=== PATIENT | female | born 1985 | race Caucasian/White ===

== ENCOUNTER → 2020-07-23 | Outpatient (CLI) | payer OTHER ==
--- NOTE | 2020-07-23 12:19 | US ---
EXAMINATION TYPE: US thyroid st tissue head/neck DATE OF EXAM: 07/23/2020 COMPARISON: NONE CLINICAL HISTORY: E07.9 Disorder of Thyroid, R13.13 Dysphagia. Dysphagia GLAND SIZE: Right Lobe: 5.2 x 1.2 x 1.4 cm Overall Parenchyma: homogenous Left Lobe: 4.1 x 1.2 x 1.3 cm Overall Parenchyma: homogeneous Isthmus Thickness: .5 cm NODULES RIGHT: # of nodules measured on right: 0 LEFT: # of nodules measured on left: 0 ISTHMUS: # of nodules measured in the isthmus: 0 Bilateral neck scanned, no evidence of lymphadenopathy. IMPRESSION: No thyroid cyst or nodule is seen on the sonographic study.
== END | disposition home or self-care (01) ==
LOC: RADUSWWP 07:28
PROVIDERS: ATTEND Family Medicine
DX: E07.9 Disorder of thyroid, unspecified (principal); R13.10 Dysphagia, unspecified
CPT/HCPCS: 76536

== ENCOUNTER 2020-11-01 11:45 | Emergency (ER) | payer BC, OTHER ==
[2020-11-01 11:55] VITALS: BP 148/95; PULSE 56; RESP 18; TEMP 98
--- NOTE | 2020-11-01 12:14 | ED ---
General Adult HPI - General Chief complaint: Neuro Symptoms/Deficit Stated complaint: loss of vision Time Seen by Provider: 11/01/20 11:58 Source: patient Mode of arrival: ambulatory Limitations: no limitations - History of Present Illness Initial comments: Dictation was produced using [employer] dictation software. please excuse any grammatical, word or spelling errors. Chief Complaint: 35-year-old female no significant past medical history presents to the emergency department for a minute episode of vision changes History of Present Illness: 35-year-old female she was sent in by [employer]. Patient was at work. She woke up in her usual state of health. While at work couple hours ago she experience a 20 minute episode of inferior bilateral hemianopsia. She states that the vision changes were white and blurry. States that her symptoms last for several minutes. Shortly after she had onset of right-sided mild headache. Patient is a history of ocular migraines. Patient took a 60 course of steroids which she completed one to 2 days ago. He is not typically on steroids. She went to the [employer] was evaluated told to come to the emergency department for concerns of transient ischemic attack. Patient denies any vision loss that was black over one eye. She denies that it was like a black curtain came over her eyes. Symptoms resolved. She has no stroke risk factors. Feels well. She has no other complaints of neurologic deficits. The ROS documented in this emergency department record has been reviewed and confirmed by me. Those systems with pertinent positive or negative responses have been documented in the HPI. All other systems are other negative and/or noncontributory. PHYSICAL EXAM: General Impression: Alert and oriented x3, not in acute distress HEENT: Normocephalic atraumatic, extra-ocular movements intact, pupils equal and reactive to light bilaterally, mucous membranes moist. Cardiovascular: Heart regular rate and rhythm Chest: Able to complete full sentences, no retractions, no tachypnea Abdomen: abdomen soft, non-tender, non-distended, no organomegaly Musculoskeletal: Pulses present and equal in all extremities, no peripheral edema Motor: no focal deficits noted Neurological: CN II-XII grossly intact, no focal motor or sensory deficits. Limited bedside fundoscopy is unremarkable Skin: Intact with no visualized rashes Psych: Normal affect and mood ED course: 5-year-old female presents to the emergency department for episode of vision changes passing for several minutes which resolved spontaneously shortly after she started experiencing mild right sided headache. Upon arrival are within acceptable limits. Physical examination is benign. Patient has no high- risk features. She does have a history of ocular migraines that she says is similar. Disposition options were discussed. Patient is agreeable for discharge without any further workup. Clinical presentation does not suggest transient ischemic attack given no history of strokes, no risk factors, no clinical suggestion of amaurosis fugax. Patient will be discharged. She is advised follow-up with primary care doctor for outpatient management of her symptoms. - Related Data Allergies Allergy/AdvReac Type Severity Reaction Status Date / Time shellfish derived [Shellfish] Allergy Rash/Hives Verified 11/01/20 11:51 Review of Systems ROS Statement: Those systems with pertinent positive or pertinent negative responses have been documented in the HPI. ROS Other: All systems not noted in ROS Statement are negative. Past Medical History Additional Past Medical History / Comment(s): migraines, glaucoma History of Any Multi-Drug Resistant Organisms: None Reported Past Surgical History: No Surgical Hx Reported Past Psychological History: No Psychological Hx Reported Smoking Status: Former smoker Past Alcohol Use History: Occasional Past Drug Use History: None Reported General Exam Limitations: no limitations Course Vital Signs 11/01/20 11:51 Temperature 98 F Pulse Rate 56 L Respiratory 18 Rate Blood Pressure 148/95 O2 Sat by Pulse 100 Oximetry Disposition Clinical Impression: Acute headache Disposition: HOME SELF-CARE Condition: Good Instructions (If sedation given, give patient instructions): Acute Headache (ED) Additional Instructions: Seek medical attention if her symptoms acutely worsen. Otherwise please follow up with primary care doctor for outpatient management and workup of symptoms. Is patient prescribed a controlled substance at d/c from ED?: No Referrals: Sapna Nair MD [Primary Care Provider] - 1-2 days
== END 2020-11-01 12:30 | disposition home or self-care (01) ==
LOC: EC 11:45
DX: R51.9 Headache, unspecified (principal); Z87.891 Personal history of nicotine dependence
CPT/HCPCS: 99283

== ENCOUNTER → 2021-09-03 | Outpatient (CLI) | payer BC ==
--- NOTE | 2021-09-03 20:47 | US ---
EXAMINATION TYPE: US transvaginal DATE OF EXAM: 09/03/2021 COMPARISON: US July 16, 2021. CT abdomen and pelvis June 19, 2009 CLINICAL HISTORY: R10.30 LOWER ABDOMINAL PAIN R10.2 Pelvic Pain. Left pelvic pain x 6 months, history left ovarian cyst seen on previous TECHNIQUE: Transvaginal exam only per ordering physician Date of LMP: 08/26/2021 EXAM MEASUREMENTS: Uterus: 8.4 x 4.3 x 4.8 cm Endometrial Stripe: 0.5 cm Right Ovary: 4.0 x 3.9 x 3.7 cm Left Ovary: 2.4 x 1.3 x 2.8 cm 1. Uterus: anteverted, heterogenous, multiple nabothian cysts 2. Endometrium: appears wnl 3. Right Ovary: 3.3 x 3.0 x 3.1cm complex area 4. Left Ovary: 1.4 x 0.7 x 1.4cm complex cystic area 5. Bilateral Adnexa: free fluid right adnexa 6. Posterior cul-de-sac: free fluid Heterogeneous uterus with nabothian cysts in the cervix. Endometrial stripe measures normal in size f or proliferative phase of menstrual cycle. Small amount of free fluid in pelvic cul-de-sac on the las t image saved. Both ovaries identified. Right ovary is larger than left. There is now 3.3 x 3.0 x 3.1 cm thin-walled cystic lesion with reticular pattern that is avascular suspected hemorrhagic cyst. Left ovary has mo re ill-defined smaller 1.4 cm lesion could reflect an involuting follicle. IMPRESSION: As above. O-Rads 2 lesions bilaterally.
== END | disposition home or self-care (01) ==
LOC: RADUSWWP 15:36
PROVIDERS: ATTEND Family Medicine
DX: R10.2 Pelvic and perineal pain (principal); N88.8 Other specified noninflammatory disorders of cervix uteri
CPT/HCPCS: 76830

== ENCOUNTER 2022-08-24 08:54 | Observation (INO) | payer BC ==
[2022-08-24] MEDS ORDERED: SODIUM CHLORIDE 0.9% 1,000 ML IV STA (09:12)
[2022-08-24] MEDS ORDERED: SODIUM CHLORIDE 0.9% 500 ML 500 ML IV STA (09:12)
--- NOTE | 2022-08-24 09:21 | ED ---
Abdominal Pain HPI - General Chief Complaint: Abdominal Pain Stated Complaint: Abd Pain Time Seen by Provider: 08/24/22 09:05 Source: patient, RN notes reviewed Mode of arrival: ambulatory Limitations: no limitations - History of Present Illness Initial Comments: Patient is a 36 year old female presenting to the ER with a chief complaint of abdominal pain. Patient states this hashad right flank pain for awhile and this morning then pain increased now in the lower abdomen, right. She describes the pain as a constant sharp stabbing pain in her right flank wrapping around to her RLQ. She reports she has had increased urinary frequency and dysuria but was treated for UTI. Patient states she has a history of kidney stones years ago. She also endorses nausea, chills and nightsweats but denies any fevers. Patient reports she has not had a menstrual cycle since April but her doctor did not seem too concerned about it. Denies loss of appetite, vomiting, constipation/diarrhea, shortness of breath, or chest pain. - Related Data Allergies Allergy/AdvReac Type Severity Reaction Status Date / Time shellfish derived [Shellfish] Allergy Rash/Hives Verified 08/24/22 09:01 Review of Systems ROS Statement: Those systems with pertinent positive or pertinent negative responses have been documented in the HPI. ROS Other: All systems not noted in ROS Statement are negative. Past Medical History Past Medical History: Hypertension Additional Past Medical History / Comment(s): migraines, glaucoma History of Any Multi-Drug Resistant Organisms: None Reported Past Surgical History: No Surgical Hx Reported Past Psychological History: No Psychological Hx Reported Smoking Status: Former smoker Past Alcohol Use History: Occasional Past Drug Use History: None Reported General Exam General appearance: alert, in no apparent distress Respiratory exam: Present: normal lung sounds bilaterally. Absent: respiratory distress, wheezes, rales, rhonchi, stridor Cardiovascular Exam: Present: regular rate, normal rhythm, normal heart sounds. Absent: systolic murmur, diastolic murmur, rubs, gallop, clicks GI/Abdominal exam: Present: soft, distended, tenderness (RLQ; radition to RLQ with palpation of LLQ), normal bowel sounds Back exam: Present: other (no CVA tenderness) Neurological exam: Present: alert, oriented X3 Skin exam: Present: warm, intact, normal color, diaphoretic (mild). Absent: rash Course Vital Signs 08/24/22 08/24/22 08:57 10:01 Temperature 99.1 F 99.3 F Pulse Rate 78 86 Respiratory 18 20 Rate Blood Pressure 113/75 116/68 O2 Sat by Pulse 98 97 Oximetry Medical Decision Making - Medical Decision Making Was pt. sent in by a medical professional or institution (, HA, OPHTHALMIC MEDICAL TECHNICIAN, urgent care, hospital, or skilled nursing...) When possible be specific @ -No Did you speak to anyone other than the patient for history (EMS, parent, family, police, friend...)? What history was obtained from this source @ -No Did you review nursing and triage notes (agree or disagree)? Why? @ -I reviewed and agree with nursing and triage notes Were old charts reviewed (outside hosp., previous admission, EMS record, old EKG, old radiological studies, urgent care reports/EKG's, skilled nursing records)? Report findings @ -No old charts were reviewed Differential Diagnosis (chest pain, altered mental status, abdominal pain women, abdominal pain men, vaginal bleeding, weakness, fever, dyspnea, syncope, headache, dizziness, GI bleed, back pain, seizure, CVA, palpatations, mental health, musculoskeletal)? @ -nDifferential Abdominal Pain Women: Appendicitis, Cholecystitis, diverticulosis, ischemic bowel, pancreatitis, hepatitis, UTI, gastroenteritis, AAA, incarcerated hernia, bowel obstruction, constipation, inflammatory bowel, hepatitis, peptic ulcer disease, splenic infarction, perforated viscus, vulvitis, ovarian torsion, PID, kidney stone, placenta abruption, this is not meant to be an all-inclusive liste EKG interpreted by me (3pts min.). @ -None X-rays interpreted by me (1pt min.). @ -None done CT interpreted by me (1pt min.). @ -CT of the abdomen and pelvis shows bilateral kidney stones, no stone within the ureter, there is noted enlarging appendix to 8.2 mm compared to prior 4 mm U/S interpreted by me (1pt. min.). @ -None done What testing was considered but not performed or refused? (CT, X-rays, U/S, labs)? Why? @ -None What meds were considered but not given or refused? Why? @ -None Did you discuss the management of the patient with other professionals (professionals i.e. Dr., PA, OPHTHALMIC MEDICAL TECHNICIAN, lab, RT, psych nurse, social science professor, controller instructor, teacher, deportation officer, case advocate)? Give summary @ -I did discuss his case with on-call surgeon Dr. Begum recommended patient to be observed, started on IV antibiotics, patient may have diet and will reevaluate patient's pain if symptoms worsen discussed possibility of surgery at a later time Was smoking cessation discussed for >3mins.? @ -No Was critical care preformed (if so, how long)? @ -No Were there social determinants of health that impacted care today? How? (Homelessness, low income, unemployed, alcoholism, drug addiction, transportation, low edu. Level, literacy, decrease access to med. care, care home, rehab)? @ -No Was there de-escalation of care discussed even if they declined (Discuss DNR or withdrawal of care, Hospice)? DNR status @ -No What co-morbidities impacted this encounter? (DM, HTN, Smoking, COPD, CAD, Canc er, CVA, ARF, Chemo, Hep., AIDS, mental health diagnosis, sleep apnea, morbid obesity)? @ -None Was patient admitted / discharged? Hospital course, mention meds given and route, prescriptions, significant lab abnormalities, going to OR and other pertinent info. @ -hospital course Undiagnosed new problem with uncertain prognosis? @ -No Drug Therapy requiring intensive monitoring for toxicity (Heparin, Nitro, Insulin, Cardizem)? @ -No Were any procedures done? @ -No Diagnosis/symptom? @ -Appendicitis Acute, or Chronic, or Acute on Chronic? @ -Acute Uncomplicated (without systemic symptoms) or Complicated (systemic symptoms)? @ -Uncomplicated Side effects of treatment? @ -No Exacerbation, Progression, or Severe Exacerbation? @ -No Poses a threat to life or bodily function? How? (Chest pain, [place], [place], pneumonia, PE, COPD, DKA, ARF, appy, cholecystitis, CVA, Diverticulitis, Homicidal, Suicidal, threat to staff... and all critical care pts) @ -No - Lab Data Result diagrams: 08/24/22 09:08/24/22 09:23 Lab Results 08/24/22 08/24/22 08/24/22 Range/Units : 09: 09: WBC 11.6 H (3.8-10.6) k/uL RBC 4.81 (3.80-5.40) m/uL Hgb 13.0 (11.4-16.0) gm/dL Hct 38.4 (34.0-46.0) % MCV 79.8 L (80.0-100.0) fL MCH 27.1 (25.0-35.0) pg MCHC 34.0 (31.0-37.0) g/dL RDW 13.6 (11.5-15.5) % Plt Count 235 (150-450) k/uL MPV 6.8 Neutrophils % 77 % Lymphocytes % 14 % Monocytes % 7 % Eosinophils % 2 % Basophils % 0 % Neutrophils # 8.9 H (1.3-7.7) k/uL Lymphocytes # 1.6 (1.0-4.8) k/uL Monocytes # 0.8 (0-1.0) k/uL Eosinophils # 0.2 (0-0.7) k/uL Basophils # 0.0 (0-0.2) k/uL Sodium 136 L (137-145) mmol/L Potassium 4.0 (3.5-5.1) mmol/L Chloride 101 (98-107) mmol/L Carbon Dioxide 27 (22-30) mmol/L Anion Gap 8 mmol/L BUN 11 (7-17) mg/dL Creatinine 0.79 (0.52-1.04) mg/dL Est GFR (CKD-EPI)AfAm >90 (>60 ml/min/1.73 sqM) Est GFR (CKD-EPI)NonAf >90 (>60 ml/min/1.73 sqM) Glucose 131 H (74-99) mg/dL Plasma Lactic Acid Jaden 1.2 (0.7-2.0) mmol/L Calcium 8.6 (8.4-10.2) mg/dL Total Bilirubin 1.1 (0.2-1.3) mg/dL AST 21 (14-36) U/L ALT 24 (4-34) U/L Alkaline Phosphatase 64 (38-126) U/L Total Protein 7.3 (6.3-8.2) g/dL Albumin 4.2 (3.5-5.0) g/dL Amylase 53 (30-110) U/L Lipase 64 (23-300) U/L Urine Color Urine Appearance (Clear) Urine pH (5.0-8.0) Ur Specific Premium (1.001-1.035) Urine Protein (Negative) Urine Glucose (UA) (Negative) Urine Ketones (Negative) Urine Blood (Negative) Urine Nitrite (Negative) Urine Bilirubin (Negative) Urine Urobilinogen (<2.0) mg/dL Ur Leukocyte Esterase (Negative) Urine RBC (0-5) /hpf Urine WBC (0-5) /hpf Ur Squamous Epith Cells (0-4) /hpf Urine Mucus (None) /hpf Urine HCG, Qual (Not Detectd) 08/24/22 08/24/22 Range/Units 09:23 09:23 WBC (3.8-10.6) k/uL RBC (3.80-5.40) m/uL Hgb (11.4-16.0) gm/dL Hct (34.0-46.0) % MCV (80.0-100.0) fL MCH (25.0-35.0) pg MCHC (31.0-37.0) g/dL RDW (11.5-15.5) % Plt Count (150-450) k/uL MPV Neutrophils % % Lymphocytes % % Monocytes % % Eosinophils % % Basophils % % Neutrophils # (1.3-7.7) k/uL Lymphocytes # (1.0-4.8) k/uL Monocytes # (0-1.0) k/uL Eosinophils # (0-0.7) k/uL Basophils # (0-0.2) k/uL Sodium (137-145) mmol/L Potassium (3.5-5.1) mmol/L Chloride (98-107) mmol/L Carbon Dioxide (22-30) mmol/L Anion Gap mmol/L BUN (7-17) mg/dL Creatinine (0.52-1.04) mg/dL Est GFR (CKD-EPI)AfAm (>60 ml/min/1.73 sqM) Est GFR (CKD-EPI)NonAf (>60 ml/min/1.73 sqM) Glucose (74-99) mg/dL Plasma Lactic Acid Jaden (0.7-2.0) mmol/L Calcium (8.4-10.2) mg/dL Total Bilirubin (0.2-1.3) mg/dL AST (14-36) U/L ALT (4-34) U/L Alkaline Phosphatase (38-126) U/L Total Protein (6.3-8.2) g/dL Albumin (3.5-5.0) g/dL Amylase (30-110) U/L Lipase (23-300) U/L Urine Color Yellow Urine Appearance Cloudy H (Clear) Urine pH 7.0 (5.0-8.0) Ur Specific Premium 1.015 (1.001-1.035) Urine Protein 1+ H (Negative) Urine Glucose (UA) Negative (Negative) Urine Ketones Negative (Negative) Urine Blood Small H (Negative) Urine Nitrite Negative (Negative) Urine Bilirubin Negative (Negative) Urine Urobilinogen <2.0 (<2.0) mg/dL Ur Leukocyte Esterase Trace H (Negative) Urine RBC 25 H (0-5) /hpf Urine WBC 8 H (0-5) /hpf Ur Squamous Epith Cells 5 H (0-4) /hpf Urine Mucus Rare H (None) /hpf Urine HCG, Qual Not Detected (Not Detectd) Disposition Clinical Impression: Appendicitis Disposition: ADMITTED IP TO THIS HOSP Referrals: Sapna Nair MD [Primary Care Provider] - 1-2 days Time of Disposition: 11:04
[2022-08-24 09:37] LABS: Basophils % (A) 0 %; Eosinophils # (A) 0.2 k/uL (0-0.7); Eosinophils % (A) 2 %; HCT 38.4 % (34.0-46.0); Lymphocytes # (A) 1.6 k/uL (1.0-4.8); Lymphocytes % (A) 14 %; MCH 27.1 pg (25.0-35.0); MCV 79.8 fL (80.0-100.0); Mean Platelet Volume 6.8; Monocytes # (A) 0.8 k/uL (0-1.0); Monocytes % (A) 7 %; Neutrophils # (A) 8.9 k/uL (1.3-7.7); Neutrophils % (A) 77 %; Platelet Count 235 k/uL (150-450); RBC 4.81 m/uL (3.80-5.40); RDW 13.6 % (11.5-15.5); WBC 11.6 k/uL (3.8-10.6)
[2022-08-24 09:48] LABS: ALT 24 U/L (4-34); AST 21 U/L (14-36); African American GFR (CKD) >90 (>60 ml/min/1.73 sqM); Albumin 4.2 g/dL (3.5-5.0); Alkaline Phosphatase 64 U/L (38-126); Amylase 53 U/L (30-110); Anion Gap 8 mmol/L; Blood Urea Nitrogen 11 mg/dL (7-17); Calcium 8.6 mg/dL (8.4-10.2); Carbon Dioxide 27 mmol/L (22-30); Chloride 101 mmol/L (98-107); Glucose 131 mg/dL (74-99); Lipase 64 U/L (23-300); Non-African American GFR(CKD) >90 (>60 ml/min/1.73 sqM); Sodium 136 mmol/L (137-145); Total Bilirubin 1.1 mg/dL (0.2-1.3); Total Protein 7.3 g/dL (6.3-8.2)
[2022-08-24 09:53] LABS: Appearance,Urine Cloudy (Clear); Bilirubin,Urine Negative (Negative); Blood,Urine Small (Negative); Color,Urine Yellow; Glucose,Urine (UA) Negative (Negative); Ketones,Urine Negative (Negative); Leukocyte Esterase,Urine Trace (Negative); Mucus,Urine Rare /hpf; Nitrite,Urine Negative (Negative); Protein,Urine 1+ (Negative); RBC,Urine 25 /hpf (0-5); Specific Gravity,Urine 1.015 (1.001-1.035); Squamous Epithelial Cell,Urine 5 /hpf (0-4); Urobilinogen,Urine <2.0 mg/dL (<2.0); WBC,Urine 8 /hpf (0-5)
--- NOTE | 2022-08-24 10:36 | CT ---
EXAMINATION TYPE: CT abdomen pelvis wo con DATE OF EXAM: 08/24/2022 COMPARISON: The knee is performed as a HISTORY: Rt flank pain CT DLP: 697.5 mGycm Examination of the solid and hollow viscera is limited given the lack of contrast. FINDINGS: LUNG BASES: No evidence for nodule. No evidence for infiltrate. LIVER/GB: The gallbladder is unremarkable. No space-occupying hepatic lesion. PANCREAS: No pancreatic mass identified. No inflammatory process seen. SPLEEN: No evidence for splenomegaly. No intrasplenic lesions seen. ADRENALS: No adrenal nodules identified. No evidence for thickening. KIDNEYS: There is evidence of prior insult likely from reflux disease lower pole right kidney with pe lvic caliectasis and surrounding focal calcifications. The overall appearance is unchanged. Suspect d uplicated renal collecting system. No evidence for hydronephrosis at this time. The left kidney demon strates 3 mm nonobstructing calculus upper pole without hydronephrosis. No solid or cystic renal mass es are appreciated. BOWEL: Appendix is distended at 8.2 mm without significant surrounding inflammatory change or appendi colith. Correlate clinically. Previously the appendix measured up to 4 mm. No evidence of bowel obstr uction. No inflammatory process. Lymph nodes: No evidence for adenopathy greater than 1 cm. Abdominal aorta: Atheromatous changes seen. No evidence for aneurysm. Genital organs: Small amount of free fluid within the pelvis. The uterus is unremarkable. No renal ma sses present. Other: No significant abnormality. IMPRESSION: 1.Appendix is distended at 8.2 mm without significant surrounding inflammatory change or appendicolit h. Correlate clinically. Previously the appendix measured up to 4 mm. 2. No evidence for obstructing nephrolithiasis. As noted there is pelvocaliectasis lower pole right k idney with renal parenchymal thinning likely from prior infection or reflux disease. Calcifications s een bilaterally without obstructive change at this time.
[2022-08-24] MEDS ORDERED: PIPERACILLIN-TAZOBACTAM 3.375 GM in SODIUM CHLORIDE 0.9% 100 ML IVPB STA (11:04)
[2022-08-24] MEDS ORDERED: ONDANSETRON 4 MG/2 ML VIAL IVP PRN (11:04)
[2022-08-24] MEDS ORDERED: NALOXONE 0.4 MG/ML 1 ML VIAL IV PRN (11:04)
[2022-08-24] MEDS ORDERED: KETOROLAC 15 MG/ML 1 ML VIAL IVP PRN (11:04)
[2022-08-24] MEDS: SODIUM CHLORIDE 0.9% 1,000 ML IV SCH (12:04)
[2022-08-24] MEDS ORDERED: PIPERACILLIN-TAZOBACTAM 3.375 GM in SODIUM CHLORIDE 0.9% 100 ML IVPB SCH (16:00)
[2022-08-24] MEDS: PIPERACILLIN-TAZOBACTAM 3.375 GM in SODIUM CHLORIDE 0.9% 100 ML IVPB SCH (19:59)
[2022-08-24] MEDS ORDERED: HYDROmorphone 1 MG/ML 1 ML SYRINGE IVP PRN (22:32)
[2022-08-24] MEDS ORDERED: HYDROmorphone 0.5 MG/0.5 ML SYRINGE IVP PRN (22:32)
--- NOTE | 2022-08-24 22:32 | P.GSHP ---
History of Present Illness H&P Date: 08/24/22 Patient presents with increased right flank pain including radiation to the left lower quadrant. Initial questionable findings for kidney stones prompted CT of the abdomen and pelvis. Additionally, patient reports right lower quadrant abdominal pain. I personally reviewed computed tomography scan with dilated appendix. Recommend admission with IV antibiotics and possible appendectomy. Recommend ultrasound of the gallbladder as well. Past Medical History Past Medical History: Hypertension Additional Past Medical History / Comment(s): migraines, glaucoma History of Any Multi-Drug Resistant Organisms: None Reported Past Surgical History: No Surgical Hx Reported Past Anesthesia/Blood Transfusion Reactions: No Reported Reaction Past Psychological History: No Psychological Hx Reported Smoking Status: Former smoker Past Alcohol Use History: Occasional Past Drug Use History: None Reported Medications and Allergies Home Medications Medication Instructions Recorded Confirmed Type lisinopriL [Zestril] 10 mg PO DAILY 08/24/22 08/24/22 History Allergies Allergy/AdvReac Type Severity Reaction Status Date / Time shellfish derived [Shellfish] Allergy Rash/Hives Verified 08/24/22 12:01 Surgical - Exam Vital Signs Temp Pulse Resp BP Pulse Ox 99.1 F 78 18 113/75 98 08/24/22 08:57 08/24/22 08:57 08/24/22 08:57 08/24/22 08:57 08/24/22 08:57 Results - Labs 08/24/22 09:23 08/24/22 09:23 Abnormal Lab Results - Last 24 Hours (Table) 08/24/22 08/24/22 08/24/22 Range/Units 09:23 09:23 09:23 WBC 11.6 H (3.8-10.6) k/uL MCV 79.8 L (80.0-100.0) fL Neutrophils # 8.9 H (1.3-7.7) k/uL Sodium 136 L (137-145) mmol/L Glucose 131 H (74-99) mg/dL Urine Appearance Cloudy H (Clear) Urine Protein 1+ H (Negative) Urine Blood Small H (Negative) Ur Leukocyte Esterase Trace H (Negative) Urine RBC 25 H (0-5) /hpf Urine WBC 8 H (0-5) /hpf Ur Squamous Epith Cells 5 H (0-4) /hpf Urine Mucus Rare H (None) /hpf Diabetes panel 08/24/22 Range/Units 09:23 Sodium 136 L (137-145) mmol/L Potassium 4.0 (3.5-5.1) mmol/L Chloride 101 (98-107) mmol/L Carbon Dioxide 27 (22-30) mmol/L BUN 11 (7-17) mg/dL Creatinine 0.79 (0.52-1.04) mg/dL Glucose 131 H (74-99) mg/dL Calcium 8.6 (8.4-10.2) mg/dL AST 21 (14-36) U/L ALT 24 (4-34) U/L Alkaline Phosphatase 64 (38-126) U/L Total Protein 7.3 (6.3-8.2) g/dL Albumin 4.2 (3.5-5.0) g/dL Calcium panel 08/24/22 Range/Units 09:23 Calcium 8.6 (8.4-10.2) mg/dL Albumin 4.2 (3.5-5.0) g/dL Pituitary panel 08/24/22 Range/Units 09:23 Sodium 136 L (137-145) mmol/L Potassium 4.0 (3.5-5.1) mmol/L Chloride 101 (98-107) mmol/L Carbon Dioxide 27 (22-30) mmol/L BUN 11 (7-17) mg/dL Creatinine 0.79 (0.52-1.04) mg/dL Glucose 131 H (74-99) mg/dL Calcium 8.6 (8.4-10.2) mg/dL Adrenal panel 08/24/22 Range/Units 09:23 Sodium 136 L (137-145) mmol/L Potassium 4.0 (3.5-5.1) mmol/L Chloride 101 (98-107) mmol/L Carbon Dioxide 27 (22-30) mmol/L BUN 11 (7-17) mg/dL Creatinine 0.79 (0.52-1.04) mg/dL Glucose 131 H (74-99) mg/dL Calcium 8.6 (8.4-10.2) mg/dL Total Bilirubin 1.1 (0.2-1.3) mg/dL AST 21 (14-36) U/L ALT 24 (4-34) U/L Alkaline Phosphatase 64 (38-126) U/L Total Protein 7.3 (6.3-8.2) g/dL Albumin 4.2 (3.5-5.0) g/dL
[2022-08-25] MEDS: SODIUM CHLORIDE 0.9% 1,000 ML IV SCH (02:24)
[2022-08-25] MEDS: PIPERACILLIN-TAZOBACTAM 3.375 GM in SODIUM CHLORIDE 0.9% 100 ML IVPB SCH ×2 (03:59→13:12)
[2022-08-25 08:06] VITALS: RESP 18
--- NOTE | 2022-08-25 08:16 | US ---
EXAMINATION TYPE: US gallbladder DATE OF EXAM: 08/25/2022 COMPARISON: CT abdomen and pelvis 08/24/2022 CLINICAL INDICATION: Female, 36 years old with history of Right upper quadrant pain; pain TECHNIQUE: Multiple sonographic images of the right upper quadrant are obtained. 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 The visualized portions of pancreas unremarkable. The tail is obscured by overlying bowel gas. The li shalom demonstrates increased attenuation without evidence of focal lesion. Gallbladder is unremarkable without evidence of wall thickening, pericholecystic fluid, or cholelithiasis. Per envelope cutter, negat rosa sonographic Jay sign. Common bile duct is within normal limits. No hydronephrosis involving th e right kidney. Prominent extrarenal pelvis. Nonobstructive right renal calculi corresponding to CT. Duplicated collecting system is better appreciated on CT. IMPRESSION: 1. No ultrasound evidence for an acute process. 2. Prominent extrarenal pelvis with nonobstructing calculi identified. This corresponds to recent CT. 3. Hepatic steatosis.
[2022-08-25] MEDS ORDERED: HEPARIN SODIUM,PORCINE/PF 5,000 UNIT/0.5 ML SYRINGE SQ SCH (09:00)
[2022-08-25] MEDS ORDERED: lisinopriL 10 MG TAB PO SCH (09:00)
[2022-08-25 09:33] LABS: Basophils # (A) 0.03 X 10*3/uL (0.00-0.10); Basophils % (A) 0.4 %; Eosinophils # (A) 0.43 X 10*3/uL (0.04-0.35); Eosinophils % (A) 5.5 %; HCT 36.7 % (37.2-46.3); Lymphocytes # (A) 2.38 X 10*3/uL (0.90-5.00); Lymphocytes % (A) 30.3 %; MCH 26.8 pg (27.0-32.0); MCHC 32.7 d/dL (32.0-37.0); MCV 81.9 FL (80.0-97.0); Mean Platelet Volume 9.1 FL (9.5-12.2); Monocytes # (A) 0.74 X 10*3/uL (0.20-1.00); Monocytes % (A) 9.4 %; NRBC Per 100 WBC 0 X 10*3/uL (0.00-0.01); Neutrophils # (A) 4.26 X 10*3/uL (1.80-7.70); Neutrophils % (A) 54.1 %; Platelet Count 211 X 10*3/uL (140-440); RBC 4.48 X 10*6/uL (4.10-5.20); RDW 13.1 % (11.5-14.5); WBC 7.86 X 10*3/uL (4.50-10.00)
[2022-08-25 13:32] VITALS: BP 131/78; PULSE 55; TEMP 97.6
--- NOTE | 2022-08-25 15:35 | P.DS ---
Providers Date of admission: 08/24/22 11:00 Expected date of discharge: 08/25/22 Attending physician: Pascale Begum Primary care physician: Sapna Nair Hospital Course: Discharge diagnosis 1. Right kidney stone 2. Normal abdominal computed tomography scan findings Hospital course This is a 36-year-old female who presented to the hospital with complaints of right flank pain radiating to the left lower quadrant and having right lower quadrant abdominal pain. Patient's abdominal pain is likely related to a right kidney stone. Her pain has shown improvement. CAT scan findings and abdominal ultrasound findings were reviewed with Dr. Begum. There is no abnormality with the gallbladder. Per Dr. Begum computed tomography scan findings are normal. Patient's pain is improving. She is tolerating diet. She's afebrile. Patient will be discharged with Flomax and Motrin for treatment of kidney stone. Patient is stable for discharge. [facility] Paramedic note has been reviewed by physician. Signing provider agrees with the documented findings, assessment, and plan of care. Patient Condition at Discharge: Stable Plan - Discharge Summary Discharge Rx Participant: No New Discharge Prescriptions: New Ibuprofen [Motrin] 600 mg PO Q8HR PRN #30 tab PRN Reason: Pain Tamsulosin HCl [Flomax] 0.4 mg PO DAILY #7 capsule Continue lisinopriL [Zestril] 10 mg PO DAILY Discharge Medication List lisinopriL [Zestril] 10 mg PO DAILY 08/24/22 [History] Ibuprofen [Motrin] 600 mg PO Q8HR PRN #30 tab 08/25/22 [Rx] Tamsulosin HCl [Flomax] 0.4 mg PO DAILY #7 capsule 08/25/22 [Rx] Follow up Appointment(s)/Referral(s): Sapna Nair MD [Primary Care Provider] - 1-2 days Patient Instructions/Handouts: Kidney Stones (DC) Discharge Disposition: HOME SELF-CARE
== END 2022-08-25 16:53 | disposition home or self-care (01) ==
LOC: EC 08:54 → 4SSUR 11:00
PROVIDERS: ADMIT Surgery Plastic and Reconstructive Surgery; ATTEND Surgery Plastic and Reconstructive Surgery
DX: N20.0 Calculus of kidney (principal); K37 Unspecified appendicitis; I10 Essential (primary) hypertension; G43.909 Migraine, unspecified, not intractable, without status migrainosus; Z87.891 Personal history of nicotine dependence; Z79.899 Other long term (current) drug therapy
CPT/HCPCS: 96366; 96375 ×2; 96361; 96365; 99285; 36415; 80053; 82150; 83605; 83690; 85025 ×2; 81001; 81025; 76705; 74176; G0378 ×2; J2543 ×2; J1885

== ENCOUNTER → 2022-10-16 | Outpatient (CLI) | payer BC ==
--- NOTE | 2022-10-16 18:02 | US ---
EXAMINATION TYPE: US kidneys/renal and bladder DATE OF EXAM: 10/16/2022 COMPARISON: CT: 08/24/22 CLINICAL INDICATION: Female, 37 years old with history of R30.0 DYSURIA; Dysuria. Hx of renal stones EXAM MEASUREMENTS: Right Kidney: 11.4 x 5.1 x 4.7 cm Left Kidney: 12.9 x 5.0 x 5.6 cm Right Kidney: Hyperechoic focus seen mid pole measuring 0.3 x 0.4 x 0.4cm. Appearance of caliectasis Left Kidney: No hydronephrosis or masses seen Bladder: wnl Bilateral Jets seen: Yes No masses are identified. The urinary bladder is anechoic. Bilateral ureteral jets are seen. IMPRESSION: Nonobstructing nephrolithiasis right kidney. There is mild caliectasis right kidney.
--- NOTE | 2022-10-16 18:27 | US ---
EXAMINATION TYPE: US pelvic complete DATE OF EXAM: 10/16/2022 COMPARISON: CT: 08/24/22 CLINICAL INDICATION: Female, 37 years old with history of R30.0 DYSURIA; Dysuria. TECHNIQUE: . Transabdominal sonographic images of the pelvis were acquired. Date of LMP: 09/25/22 EXAM MEASUREMENTS: Uterus: 10.9 x 6.6 x 4.8 cm Endometrial Stripe: 1.5 cm Right Ovary: 3.0 x 2.2 x 1.8 cm Left Ovary: 3.1 x 1.8 x 2.2 cm 1. Uterus: Anteverted wnl 2. Endometrium: wnl 3. Right Ovary: Dominant follicle seen measuring 2.1 x 1.4 x 1.2cm 4. Left Ovary: wnl Spectral, color and waveform doppler imaging shows good arterial and venous flow within the ovaries ; there is no evidence for ovarian torsion. 5. Bilateral Adnexa: wnl 6. Posterior cul-de-sac: wnl IMPRESSION: Dominant follicle right ovary.
== END | disposition home or self-care (01) ==
LOC: RADUSWWP 16:01
PROVIDERS: ATTEND Family Medicine
DX: N83.01 Follicular cyst of right ovary (principal); N20.0 Calculus of kidney; N28.89 Other specified disorders of kidney and ureter; R30.0 Dysuria; Z87.442 Personal history of urinary calculi
CPT/HCPCS: 76770; 76856

== ENCOUNTER → 2022-12-19 | Outpatient (CLI) | payer BC ==
--- NOTE | 2022-12-20 20:32 | MR ---
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 Post contrast imaging was performed. Post IV contrast subtraction images were also submitted for review. IV Contrast: 8.5 cc Gadobutrol FINDINGS: LOWER CHEST: No gross irregularity. ABDOMEN Liver: No evidence for hepatic steatosis or cirrhosis. Gallbladder and Bile ducts: No evidence for ductal dilation, or biliary stricture or evidence of chol edocholithiasis. The gallbladder is within normal limits. Pancreas: No ductal dilation. No evidence for solid mass. Spleen: Normal for size. Adrenal glands: Unremarkable. Kidneys: There is irregular morphology to the inferior aspect of the right kidney which could represe nt an anatomic congenital duplex collecting system kidney with a more exophytic inferior pole moiety. Mild dilation of the right inferior pole moiety renal pelvis without evidence for hydronephrosis.The re is no evidence for left renal hydronephrosis. No suspicious masses bilaterally. Stomach and Bowel: No evidence for bowel wall thickening or evidence for obstruction.. Peritoneum: No evidence of pneumoperitoneum or free fluid. Vasculature: No aortic aneurysm. Musculoskeletal: The osseous structures appear intact. Lymph Nodes: No gross evidence for lymphadenopathy. Abdominal wall: Unremarkable. 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 No evidence for suspicious mass. No suspicious renal mass.
== END | disposition home or self-care (01) ==
LOC: RADMRIMAIN 17:53
PROVIDERS: ATTEND Urology
DX: D41.01 Neoplasm of uncertain behavior of right kidney (principal)
CPT/HCPCS: 74183; A9585

== ENCOUNTER 2023-07-31 15:01 | Observation (INO) | payer BC ==
--- NOTE | 2023-07-31 15:33 | ED ---
Female Urogenital HPI - General Source: patient, RN notes reviewed Mode of arrival: ambulatory Limitations: no limitations <Herman Greco - Last Filed: 07/31/23 15:31> <Sophia Lomax - Last Filed: 07/31/23 18:40> - General Chief complaint: Vaginal Bleeding Stated complaint: Abb labs,vaginal bleeding Time Seen by Provider: 07/31/23 15:31 - History of Present Illness Initial comments: Quick note: 37-year-old female presented to the ER with a chief complaint of abdominal cramping and vaginal bleeding. Patient reports she has been following up outpatient with her [facility]ER as she is currently . She has been having serial hCGs drawn and [facility] notified her that she has not been having appropriate rise in levels. She does report for the past 2 weeks she has been having vaginal spotting. Patient sent here by [facility] for an ultrasound. Patient denies any fevers, chills, nausea, vomiting. (Herman Greco) 37-year-old female who is G2, P1 who presents emergency department with ab dominal cramping. She states that she took a test a couple of weeks ago and it was positive. She began having some spotting the week and of the . She saw her SHIP SC[facility]ER who did beta quant levels. She has had her labs tested 3 times and they have not been elevating appropriately. Patient's beta quant the Thursday before the holiday was 529. As of Thursday the quant was only 530. She sent her in for an ultrasound due to abdominal cramping, bleeding and abnormal elevation in her quant. Patient states her pain is a 4 out of 10. She states her bleeding is significantly lessened to a brown spotting. She denies any lightheadedness or dizziness. No shortness of breath. No other al leviating, precipitating modifying factors (Sophia Lomax) - Related Data Home Medications Medication Instructions Recorded Confirmed lisinopriL [Zestril] 10 mg PO DAILY 08/24/22 08/24/22 Previous Rx's Medication Instructions Recorded Ibuprofen [Motrin] 600 mg PO Q8HR PRN #30 tab 08/25/22 Tamsulosin HCl [Flomax] 0.4 mg PO DAILY #7 capsule 08/25/22 Cephalexin [Keflex] 500 mg PO Q12HR #20 cap 11/06/22 Acetaminophen Tab [Tylenol] 650 mg PO Q6H PRN #30 tab 07/31/23 Ibuprofen [Motrin] 600 mg PO Q6HR PRN #30 tab 07/31/23 oxyCODONE HCL [Roxicodone] 5 mg PO Q6HR PRN 3 Days #12 tab 07/31/23 Allergies Allergy/AdvReac Type Severity Reaction Status Date / Time shellfish derived [Shellfish] Allergy Rash/Hives Verified 07/31/23 15:18 Review of Systems ROS Other: All systems not noted in ROS Statement are negative. <Herman Greco - Last Filed: 07/31/23 15:31> ROS Other: All systems not noted in ROS Statement are negative. <Sophia Lomax - Last Filed: 07/31/23 18:40> ROS Statement: Those systems with pertinent positive or pertinent negative responses have been documented in the HPI. Past Medical History Past Medical History: Hypertension Additional Past Medical History / Comment(s): migraines, glaucoma, History of Any Multi-Drug Resistant Organisms: None Reported Past Surgical History: Tonsillectomy Past Anesthesia/Blood Transfusion Reactions: No Reported Reaction Past Psychological History: No Psychological Hx Reported Smoking Status: Former smoker Past Alcohol Use History: Occasional Past Drug Use History: None Reported <Herman Greco - Last Filed: 07/31/23 15:31> General Exam Limitations: no limitations <Herman Greco - Last Filed: 07/31/23 15:31> - General Exam Comments Initial Comments: Visual Physical Exam Vital signs reviewed General: Well-appearing, nontoxic, no acute distress. Head: Normocephalic, atraumatic Eyes: PERRLA, EOMI ENT: Airway patent Chest: Nonlabored breathing Skin: No visual rash, normal skin tone Neuro: Alert and oriented 3 Musculoskeletal: No gross abnormalities (Herman Greco) Course <Sophia Lomax - Last Filed: 07/31/23 18:40> Vital Signs 07/31/23 07/31/23 15:14 18:32 Temperature 98.2 F Pulse Rate 74 68 Respiratory 18 18 Rate Blood Pressure 135/84 143/91 O2 Sat by Pulse 98 97 Oximetry - Reevaluation(s) Reevaluation #1: 07/31/23 17:32 Dr. Garcia aware (Sophia Lomax) Medical Decision Making <Herman Greco - Last Filed: 07/31/23 15:31> - Lab Data Result diagrams: 07/31/23 16:14 07/31/23 16:14 <Sophia Lomax - Last Filed: 07/31/23 18:40> - Medical Decision Making I performed the quick note portion of this chart. Electronically signed by Herman Greco PA-C (Herman Greco) - Lab Data Lab Results 07/31/23 07/31/23 07/31/23 Range/Units 16:14 16:14 16:14 WBC 9.7 (3.8-10.6) k/uL RBC 3.68 L (3.80-5.40) m/uL Hgb 9.8 L (11.4-16.0) gm/dL Hct 29.7 L (34.0-46.0) % MCV 80.7 (80.0-100.0) fL MCH 26.6 (25.0-35.0) pg MCHC 32.9 (31.0-37.0) g/dL RDW 15.2 (11.5-15.5) % Plt Count 306 (150-450) k/uL MPV 7.1 Neutrophils % 66 % Lymphocytes % 22 % Monocytes % 6 % Eosinophils % 4 % Basophils % 0 % Neutrophils # 6.4 (1.3-7.7) k/uL Lymphocytes # 2.1 (1.0-4.8) k/uL Monocytes # 0.6 (0-1.0) k/uL Eosinophils # 0.4 (0-0.7) k/uL Basophils # 0.0 (0-0.2) k/uL Poikilocytosis Slight Sodium (137-145) mmol/L Potassium (3.5-5.1) mmol/L Chloride (98-107) mmol/L Carbon Dioxide (22-30) mmol/L Anion Gap mmol/L BUN (7-17) mg/dL Creatinine (0.52-1.04) mg/dL Est GFR (CKD-EPI)AfAm (>60 ml/min/1.73 sqM) Est GFR (CKD-EPI)NonAf (>60 ml/min/1.73 sqM) Glucose (74-99) mg/dL Calcium (8.4-10.2) mg/dL Total Bilirubin (0.2-1.3) mg/dL AST (14-36) U/L ALT (4-34) U/L Alkaline Phosphatase (38-126) U/L Total Protein (6.3-8.2) g/dL Albumin (3.5-5.0) g/dL HCG, Quant mIU/mL Urine Color Colorless Urine Appearance Cloudy H (Clear) Urine pH 6.0 (5.0-8.0) Ur Specific [place] 1.007 (1.001-1.035) Urine Protein Negative (Negative) Urine Glucose (UA) Negative (Negative) Urine Ketones Negative (Negative) Urine Blood Small H (Negative) Urine Nitrite Negative (Negative) Urine Bilirubin Negative (Negative) Urine Urobilinogen <2.0 (<2.0) mg/dL Ur Leukocyte Esterase Negative (Negative) Urine RBC 1 (0-5) /hpf Urine WBC 1 (0-5) /hpf Ur Squamous Epith Cells 6 H (0-4) /hpf Urine Bacteria Rare H (None) /hpf Urine HCG, Qual Detected (Not Detectd) Blood Type Confirm 07/31/23 07/31/23 07/31/23 Range/Units 16:14 17:18 17:33 WBC (3.8-10.6) k/uL RBC (3.80-5.40) m/uL Hgb (11.4-16.0) gm/dL Hct (34.0-46.0) % MCV (80.0-100.0) fL MCH (25.0-35.0) pg MCHC (31.0-37.0) g/dL RDW (11.5-15.5) % Plt Count (150-450) k/uL MPV Neutrophils % % Lymphocytes % % Monocytes % % Eosinophils % % Basophils % % Neutrophils # (1.3-7.7) k/uL Lymphocytes # (1.0-4.8) k/uL Monocytes # (0-1.0) k/uL Eosinophils # (0-0.7) k/uL Basophils # (0-0.2) k/uL Poikilocytosis Sodium 138 (137-145) mmol/L Potassium 3.8 (3.5-5.1) mmol/L Chloride 107 (98-107) mmol/L Carbon Dioxide 25 (22-30) mmol/L Anion Gap 6 mmol/L BUN 12 (7-17) mg/dL Creatinine 0.77 (0.52-1.04) mg/dL Est GFR (CKD-EPI)AfAm >90 (>60 ml/min/1.73 sqM) Est GFR (CKD-EPI)NonAf >90 (>60 ml/min/1.73 sqM) Glucose 100 H (74-99) mg/dL Calcium 9.0 (8.4-10.2) mg/dL Total Bilirubin 0.9 (0.2-1.3) mg/dL AST 25 (14-36) U/L ALT 31 (4-34) U/L Alkaline Phosphatase 53 (38-126) U/L Total Protein 7.0 (6.3-8.2) g/dL Albumin 4.2 (3.5-5.0) g/dL HCG, Quant 369.9 mIU/mL Urine Color Urine Appearance (Clear) Urine pH (5.0-8.0) Ur Specific [place] (1.001-1.035) Urine Protein (Negative) Urine Glucose (UA) (Negative) Urine Ketones (Negative) Urine Blood (Negative) Urine Nitrite (Negative) Urine Bilirubin (Negative) Urine Urobilinogen (<2.0) mg/dL Ur Leukocyte Esterase (Negative) Urine RBC (0-5) /hpf Urine WBC (0-5) /hpf Ur Squamous Epith Cells (0-4) /hpf Urine Bacteria (None) /hpf Urine HCG, Qual (Not Detectd) Blood Type Confirm A Positive Disposition <Herman Greco - Last Filed: 07/31/23 15:31> Is patient prescribed a controlled substance at d/c from ED?: No Time of Disposition: 18:30 Decision to Admit Reason: Admit from EC Decision Date: 07/31/23 Decision Time: 18:30 <Sophia Lomax - Last Filed: 07/31/23 18:40> Clinical Impression: Dysfunctional uterine bleeding, Ectopic , Ruptured ectopic Disposition: ADMITTED IP TO THIS HOSP Condition: Stable Prescriptions: Ibuprofen [Motrin] 600 mg PO Q6HR PRN #30 tab PRN Reason: Mild Pain (Scale 1 To 3) oxyCODONE HCL [Roxicodone] 5 mg PO Q6HR PRN 3 Days #12 tab PRN Reason: Breakthrough Pain Acetaminophen Tab [Tylenol] 650 mg PO Q6H PRN #30 tab PRN Reason: Mild Pain (Scale 1 To 3) Referrals: Sapna Nair MD [Primary Care Provider] - 1-2 days
--- NOTE | 2023-07-31 16:53 | US ---
EXAMINATION TYPE: Transabdominal DATE OF EXAM: 07/31/2023 4:32 PM COMPARISON: NONE CLINICAL INDICATION: Female, 37 years old with history of abd pain and vag bleeding; 2 weeks of spott ing and cramping EXAM PERFORMED: Transvaginal (TV) and Transabdominal (TA) EXAM MEASUREMENTS: GESTATIONAL AGE / DATING Physician Established: ( weeks/ days) EDC: Dates by LMP: (4 weeks/0 days) EDC: 04/08/2024 MATERNAL ANATOMY Uterus: 10.1 x 5.2 x 5.7 cm Right Ovary: Left Ovary: 5.3 x 4.5 x 5.0 Post CDS / Adnexa: Dirty Fluid and debris seen; Presence of free fluid: yes - bilateral adnexas and anterior and posterior cul de sac Presence of corpus luteal cyst: no Presence of subchorionic bleed: NA GESTATION / SURVEY CRL: NA ( weeks/ days) MSD: NA ( weeks/ days) Yolk Sac (normal less than 6mm): NA Heart Rate: NA bpm Rhythm: NA IUP: NA Nuchal Translucency 10-14wks (normal less than 3mm): NA Age Appropriate Anatomy Cord Insertion: NA Limbs: NA Calvarium: NA Date of LMP: 07/02/2022 Beta HcG (if available): Not available at this time ? Ruptured ectopic IMPRESSION: Complex free fluid throughout the pelvis which could represent blood products in the setting of ruptu red ectopic . No intrauterine gestational sac identified. Correlate with serum beta hCG. OB/ [facility]IP [facility] consultation recommended. Findings communicated to Dr. Lomax on 07/31/2023 4:[address] Mati Landeros.
[2023-07-31 16:56] LABS: Basophils % (A) 0 %; Eosinophils # (A) 0.4 k/uL (0-0.7); Eosinophils % (A) 4 %; HCT 29.7 % (34.0-46.0); HGB 9.8 gm/dL (11.4-16.0); Lymphocytes # (A) 2.1 k/uL (1.0-4.8); Lymphocytes % (A) 22 %; MCH 26.6 pg (25.0-35.0); MCHC 32.9 g/dL (31.0-37.0); MCV 80.7 fL (80.0-100.0); Mean Platelet Volume 7.1; Monocytes # (A) 0.6 k/uL (0-1.0); Monocytes % (A) 6 %; Neutrophils # (A) 6.4 k/uL (1.3-7.7); Neutrophils % (A) 66 %; Platelet Count 306 k/uL (150-450); Poikilocytosis Slight; RBC 3.68 m/uL (3.80-5.40); RDW 15.2 % (11.5-15.5); WBC 9.7 k/uL (3.8-10.6)
[2023-07-31 17:10] LABS: ALT 31 U/L (4-34); AST 25 U/L (14-36); African American GFR (CKD) >90 (>60 ml/min/1.73 sqM); Albumin 4.2 g/dL (3.5-5.0); Alkaline Phosphatase 53 U/L (38-126); Anion Gap 6 mmol/L; Blood Urea Nitrogen 12 mg/dL (7-17); Carbon Dioxide 25 mmol/L (22-30); Chloride 107 mmol/L (98-107); Glucose 100 mg/dL (74-99); Non-African American GFR(CKD) >90 (>60 ml/min/1.73 sqM); Potassium 3.8 mmol/L (3.5-5.1); Sodium 138 mmol/L (137-145); Total Bilirubin 0.9 mg/dL (0.2-1.3)
[2023-07-31 17:51] LABS: Appearance,Urine Cloudy (Clear); Bacteria,Urine Rare /hpf; Bilirubin,Urine Negative (Negative); Blood,Urine Small (Negative); Color,Urine Colorless; Glucose,Urine (UA) Negative (Negative); Ketones,Urine Negative (Negative); Leukocyte Esterase,Urine Negative (Negative); Nitrite,Urine Negative (Negative); Protein,Urine Negative (Negative); RBC,Urine 1 /hpf (0-5); Specific Gravity,Urine 1.007 (1.001-1.035); Squamous Epithelial Cell,Urine 6 /hpf (0-4); Urobilinogen,Urine <2.0 mg/dL (<2.0); WBC,Urine 1 /hpf (0-5)
[2023-07-31] MEDS ORDERED: NALOXONE 0.4 MG/ML 1 ML VIAL IV PRN (18:33)
--- NOTE | 2023-07-31 18:34 | P.HPIHPCON ---
History of Present Illness H&P Date: 07/31/23 Chief Complaint: Vaginal spotting, abdominal pain in Ms. Burgos is a 37 year old at 4 weeks and 0 days by LMP of 07/03/2023 who presents to the emergency room for imaging after speaking with the RN at [facility] for abnormally rising b-HCG in the context of vaginal spotting for the past 2 weeks. BCG last week did rise from 261 to 529. However, the beta was repeated once again and only meaghan to 530. Today b-HCG is down to 369. On pelvic US, there is no intrauterine appreciated and there is a complex fluid collection in the anterioa and posterior cul-de-sacs as well as around bilateral adnexa, concerning for ruptured ectopic . The patient complains of 4/10 pain. The patient last ate at 1400. OBGYN history: 1 full-term vaginal delivery without complications. LMP 07/03/23, patient admits to very irregular menses every 2 [address] Ruiz Past Medical History: Patient denies Medications: None Past Surgical History: Tonsillectomy Consent for Procedure: I have explained the operation/procedure to the patient, including the risks, benefits, side effects, alternative therapies (including not receiving the proposed treatment or service), the likelihood of the patient achieving his/her goals, and potential recuperation problems for the procedure/sedation/analgesia, as well as any blood products, if indicated. I also explained to the patient the risks, benefits and side effects of the alternatives, as well as the risks related to not receiving the proposed procedure, care, treatment, or services. Past Medical History Past Medical History: Hypertension Additional Past Medical History / Comment(s): migraines, glaucoma, History of Any Multi-Drug Resistant Organisms: None Reported Past Surgical History: Tonsillectomy Past Anesthesia/Blood Transfusion Reactions: No Reported Reaction Past Psychological History: No Psychological Hx Reported Smoking Status: Former smoker Past Alcohol Use History: Occasional Past Drug Use History: None Reported Medications and Allergies Home Medications Medication Instructions Recorded Confirmed Type lisinopriL [Zestril] 10 mg PO DAILY 08/24/22 08/24/22 History Ibuprofen [Motrin] 600 mg PO Q8HR PRN #30 tab 08/25/22 Rx Tamsulosin HCl [Flomax] 0.4 mg PO DAILY #7 capsule 08/25/22 Rx Cephalexin [Keflex] 500 mg PO Q12HR #20 cap 11/06/22 Rx Acetaminophen Tab [Tylenol] 650 mg PO Q6H PRN #30 tab 07/31/23 Rx Ibuprofen [Motrin] 600 mg PO Q6HR PRN #30 tab 07/31/23 Rx oxyCODONE HCL [Roxicodone] 5 mg PO Q6HR PRN 3 Days #12 tab 07/31/23 Rx Allergies Allergy/AdvReac Type Severity Reaction Status Date / Time shellfish derived [Shellfish] Allergy Rash/Hives Verified 07/31/23 15:18 Surgical - Exam Vital Signs Temp Pulse Resp BP Pulse Ox 98.2 F 74 18 135/84 98 07/31/23 15:14 07/31/23 15:14 07/31/23 15:14 07/31/23 15:14 07/31/23 15:14 Focused physical exam is performed. Vital signs are stable. Patient is pleasant and conversing normal on exam. Breathing is non-labored. Abdomen is mildly tender to palpation diffusely in the pelvis. Extremities are non-tender and non- edematous. Results - Labs 07/31/23 16:14 07/31/23 16:14 Abnormal Lab Results - Last 24 Hours (Table) 07/31/23 07/31/23 07/31/23 Range/Units 16:14 16:14 16:14 RBC 3.68 L (3.80-5.40) m/uL Hgb 9.8 L (11.4-16.0) gm/dL Hct 29.7 L (34.0-46.0) % Glucose 100 H (74-99) mg/dL Urine Appearance Cloudy H (Clear) Urine Blood Small H (Negative) Ur Squamous Epith Cells 6 H (0-4) /hpf Urine Bacteria Rare H (None) /hpf Diabetes panel 07/31/23 Range/Units 16:14 Sodium 138 (137-145) mmol/L Potassium 3.8 (3.5-5.1) mmol/L Chloride 107 (98-107) mmol/L Carbon Dioxide 25 (22-30) mmol/L BUN 12 (7-17) mg/dL Creatinine 0.77 (0.52-1.04) mg/dL Glucose 100 H (74-99) mg/dL Calcium 9.0 (8.4-10.2) mg/dL AST 25 (14-36) U/L ALT 31 (4-34) U/L Alkaline Phosphatase 53 (38-126) U/L Total Protein 7.0 (6.3-8.2) g/dL Albumin 4.2 (3.5-5.0) g/dL Calcium panel 07/31/23 Range/Units 16:14 Calcium 9.0 (8.4-10.2) mg/dL Albumin 4.2 (3.5-5.0) g/dL Pituitary panel 07/31/23 Range/Units 16:14 Sodium 138 (137-145) mmol/L Potassium 3.8 (3.5-5.1) mmol/L Chloride 107 (98-107) mmol/L Carbon Dioxide 25 (22-30) mmol/L BUN 12 (7-17) mg/dL Creatinine 0.77 (0.52-1.04) mg/dL Glucose 100 H (74-99) mg/dL Calcium 9.0 (8.4-10.2) mg/dL Adrenal panel 07/31/23 Range/Units 16:14 Sodium 138 (137-145) mmol/L Potassium 3.8 (3.5-5.1) mmol/L Chloride 107 (98-107) mmol/L Carbon Dioxide 25 (22-30) mmol/L BUN 12 (7-17) mg/dL Creatinine 0.77 (0.52-1.04) mg/dL Glucose 100 H (74-99) mg/dL Calcium 9.0 (8.4-10.2) mg/dL Total Bilirubin 0.9 (0.2-1.3) mg/dL AST 25 (14-36) U/L ALT 31 (4-34) U/L Alkaline Phosphatase 53 (38-126) U/L Total Protein 7.0 (6.3-8.2) g/dL Albumin 4.2 (3.5-5.0) g/dL Assessment and Plan Assessment: 37 year old at 4 weeks gestation with suspected ruptured ectopic Plan: Risks, benefits, and alternatives to Diagnostic Laparoscopy, Possible Unilateral Salpingectomy, Possible Laparotomy are discussed with the patient including risk of bleeding, infection, damage to surrounding structures including ovaries/bladder/bowel, and post-operative VTE. The patient understands these risks and desires to proceed with surgery as scheduled. All questions answered. Time with Patient: Greater than 30 (35 minutes)
[2023-07-31] MEDS: LACTATED RINGERS 1,000 ML IV ONE (19:06)
[2023-07-31] MEDS ORDERED: ROCURONIUM 10 MG/ML (5 ML VIAL) IV ONE (19:16)
[2023-07-31] MEDS ORDERED: KETOROLAC 15 MG/ML 1 ML VIAL ONE (19:16)
[2023-07-31] MEDS ORDERED: GLYCOPYRROLATE 0.2 MG/ML 2 ML VIAL ONE (19:16)
[2023-07-31] MEDS ORDERED: PROPOFOL 10 MG/ML 20 ML VIAL IV ONE (19:16)
[2023-07-31] MEDS ORDERED: DEXAMETHASONE SOD PHOSPHATE 4 MG/ML 1 ML VIAL ONE (19:16)
[2023-07-31] MEDS ORDERED: SUCCINYLCHOLINE CHLORIDE 200 MG/10 ML VIAL IV ONE (19:16)
[2023-07-31] MEDS ORDERED: ONDANSETRON 4 MG/2 ML VIAL ONE (19:16)
[2023-07-31] MEDS ORDERED: MIDAZOLAM 2 MG/2 ML VIAL ONE (19:16)
[2023-07-31] MEDS ORDERED: NEOSTIGMINE 1 MG/ML 10 ML VIAL ONE (19:16)
[2023-07-31] MEDS ORDERED: LIDOCAINE 1% INJ 10MG/ML (20 ML MDV) ONE (19:16)
[2023-07-31] MEDS ORDERED: fentaNYL (PF) 50 MCG/ML 2 ML AMP ONE (19:16)
[2023-07-31] MEDS: BUPIVACAINE (PF) 0.25% 30 ML VIAL SQ ONE (19:40)
--- NOTE | 2023-07-31 20:05 | P.OP ---
Date of Procedure: 07/31/23 Preoperative Diagnosis: Ruptured ectopic Postoperative Diagnosis: Ruptured right tubal ectopic Procedure(s) Performed: Diagnostic Laparoscopy, Right Salpingectomy, Evacuation of Hemoperitoneum Implants: None Anesthesia: CARLEEN Surgeon: Rhonda Hart Estimated Blood Loss (ml): 5 IV fluids (ml): 400 Urine output (ml): 500 Pathology: other (right fallopian tube and ectopic ) Condition: stable Disposition: same day Indications for Procedure: Ms. Burgos is a 37 year old at 4 weeks gestation by LMP of 07/03/23 who presented to the ER today for pelvic US after learning from the [facility] RN that her bHCG was rising not rising appropriately for a viable intrauterine and she had 2 weeks of ongoing vaginal spotting. Pelvic US was suggestive of a ruptured ectopic with complex free fluid throughout the pelvis. Risks, benefits, and alternatives to Diagnostic laparoscopy, possible right salpingectomy, and possible laparotomy are discussed with the patient including risk of bleeding, infection, damage to surrounding structures including bladder/bowel/ovaries, and post-operative VTE. Operative Findings: Approximately 300 mL of hemoperitoneum is noted upon entry. The right fallopian tube is ruptured and contains an ectopic . Left fallopian tube and bilateral ovaries are grossly normally appearing. Uterus is grossly normal appearing. Description of Procedure: Patient was taken to the OR with IV fluid running and pneumatic compression stockings on both legs. General anesthesia was obtained without difficulty. The patient was placed in the dorsal lithotomy position with Burton-type stirrups with knees bent at 30 degree angles. Examination under anesthesia revealed a normal-sized, anteverted uterus. The patient as prepared and draped. The bladder was emptied. A speculum was placed into the vagina. The anterior lip of the cervix was grasped with a single-toothed tenaculum. A uterine manipulator was introduced. A horizontal skin incision was made at the umbilical fold. The periumbilical skin was manually elevated. The Veress needle was introduced into the peritoneal cavity at a straight angle without difficulty. A saline drop test was performed to validate intraperitoneal placement. The pneumoperitoneum was established with CO2 gas to a pressure of 15mmHg. A 5mm trocar was inserted into the abdomen under direct laparoscopic visualization. Intraabdominal survey revealed lack of any visceral or vascular injury. The pelvic and abdominal anatomy was noted as above. Two additional laparoscopic assit ports were placed in the right and left lower quadrants. A Ce Grasper was used to machine operator hop picker the fimbriated end of the right fallopian tube. The LigaSure device was used to seal and ligate the fallopian tube sequentially to the level of the uterine cornua. The fallopian tube was then transected and removed through the left laparoscopic port inside of an Endocatch bag. The suction is then used to evacuated approximately 300 mL of hemoperitoneum in the pelvis. Excellent hemostasis was noted at the end of the case.The patient tolerated the procedure well. All instruments were removed from the abdomen and vagina. The abdominal incisions are closed with 4-0 Monocryl and covered with bandaids. All counts were correct times two. The patient was taken to the recovery room in stable condition.
[2023-07-31] MEDS: HYDROmorphone 1 MG/ML 1 ML SYRINGE IVP ONE (20:19)
[2023-07-31 21:12] VITALS: RESP 16; TEMP 98.4
[2023-07-31] MEDS: SODIUM CHLORIDE 0.9% 1,000 ML IV SCH (21:15)
[2023-07-31 23:29] VITALS: BP 120/74; PULSE 80
== END 2023-07-31 23:30 | disposition home or self-care (01) ==
LOC: EC 15:01 → 4FBP 18:38
PROVIDERS: ADMIT Obstetrics & Gynecology; ATTEND Obstetrics & Gynecology
DX: O00.101 Right tubal pregnancy without intrauterine pregnancy (principal); O99.611 Diseases of the digestive system complicating pregnancy, first trimester; K66.1 Hemoperitoneum; O16.1 Unspecified maternal hypertension, first trimester; Z3A.01 Less than 8 weeks gestation of pregnancy; Z87.891 Personal history of nicotine dependence; Z79.899 Other long term (current) drug therapy
CPT/HCPCS: 99285; 36415; 86900; 86901; 80053; 85025; 86850; 81001; 81025; 84702; 76801; 76817; 59151; G0378; J1170